=== PATIENT | male | born 1960 | race Caucasian/White ===

== ENCOUNTER 2019-09-27 20:24 | Emergency (ER) | payer BC ==
[~2019-09-27 20:24] MED LIST: Cephalexin 500 MG Cap ONE
[2019-09-27] MEDS ORDERED: Lidocaine 1% 10 ML MDV INJECT ONE (20:50)
--- NOTE | 2019-09-27 21:06 | EDM.PDOC ---
ED HPI GENERAL MEDICAL PROBLEM - General Chief Complaint: General Stated Complaint: FISH HOOK Time Seen by Provider: 09/27/19 20:51 Source of Information: Reports: Patient History Limitations: Reports: No Limitations - History of Present Illness INITIAL COMMENTS - FREE TEXT/NARRATIVE: Pt was fishing prior to arrival and got a fishhook embedded in his right index finger while attempting to remove fishhook from fish's mouth. No other reason for visit. Onset: Today Onset Time: 20:00 Location: Reports: Upper Extremity, Right Quality: Reports: Sharp Severity: Mild Improves with: Reports: None Worsens with: Reports: None Associated Symptoms: Reports: No Other Symptoms Right Finger-Index Pain Score (Numeric/FACES): 4 - Related Data Allergies Allergy/AdvReac Type Severity Reaction Status Date / Time No Known Allergies Allergy Verified 09/27/19 21:10 Home Meds: Home Meds NK [No Known Home Meds] 09/28/19 [History] Past Medical History Respiratory History: Reports: Asthma Social & Family History - Family History Family Medical History: Noncontributory - Tobacco Use Smoking Status *Q: Never Smoker Second Hand Smoke Exposure: No - Caffeine Use Caffeine Use: Reports: Coffee - Recreational Drug Use Recreational Drug Use: No ED ROS GENERAL - Review of Systems Review Of Systems: See Below Constitutional: Reports: No Symptoms HEENT: Reports: No Symptoms Respiratory: Reports: No Symptoms Cardiovascular: Reports: No Symptoms GI/Abdominal: Reports: No Symptoms : Reports: No Symptoms Musculoskeletal: Reports: Other (right index finger pain from fishhook) Skin: Reports: Wound, Other (fishhook right index finger middle phalanx) ED EXAM, SKIN/RASH Exam: See Below Text/Narrative:: Mize in right index finger Exam Limited By: No Limitations General Appearance: Alert, WD/WN, No Apparent Distress Neck: Normal Inspection Respiratory/Chest: No Respiratory Distress Cardiovascular: Normal Peripheral Pulses Extremities: Other (right index finger with fish hook embedded) Psychiatric: Normal Affect, Normal Mood Skin: Warm, Other (fish hook embedded in right middle finger radial aspect middle phalanx) Location, Skin: Upper Extremity, Right (right middle finger fishhook embedded) ED SKIN PROCEDURES - Foreign Body Removal Indication:: fishhook embedded right index finger Consent Obtained:: Patient Performing Doctor:: Ernesto Medrano Anesthesia Type: Local Complications:: No Course - Vital Signs Last Recorded V/S: Last Vital Signs Temp 98 F 09/27/19 20:30 Pulse 78 09/27/19 20:30 Resp 18 09/27/19 20:30 BP 157/98 H 09/27/19 20:30 Pulse Ox 98 09/27/19 20:30 - Orders/Labs/Meds Orders: Active Orders 24 hr Category Date Time Status Vaccines to be Administered [RC] PER UNIT ROUTINE Care 09/27/19 21:19 Active Meds: Medications Discontinued Medications Generic Name Dose Route Start Last Admin Trade Name Shelia PRN Reason Stop Dose Admin Cephalexin 500 mg 09/28/19 00:00 09/28/19 01:41 Keflex PO Not Given Q6HR CY Diphtheria/Tetanus/Acell Pertussis 0.5 ml 09/27/19 21:19 09/27/19 21:18 Boostrix IM 09/27/19 21:20 0.5 ml .ONCE ONE Administration Lidocaine HCl 4 ml 09/27/19 20:50 09/27/19 20:50 Xylocaine-Mpf 1% INJECT 09/27/19 20:51 4 ml ONETIME ONE Administration Departure - Departure Time of Disposition: 21:14 Disposition: Home, Self-Care 01 Clinical Impression: Fish hook injury of finger Qualifiers: Encounter type: initial encounter Laterality: right Qualified Code(s): S69.91XA - Unspecified injury of right wrist, hand and finger(s), initial encounter - Discharge Information *PRESCRIPTION DRUG MONITORING PROGRAM REVIEWED*: Not Applicable *COPY OF PRESCRIPTION DRUG MONITORING REPORT IN PATIENT HANNAH: Not Applicable Instructions: Wound Care, Adult Referrals: PCP,None [Primary Care Provider] - Forms: ED Department Discharge Additional Instructions: *Take Cephalaxin twice a day for at least 7 days *Take Ibuprofen or Tylenol as needed for pain *Watch for signs of infection to the finger such as redness, warmth, or discharge If you have any questions or concerns please call us at [phone] Sepsis Event Note (ED) - Focused Exam Vital Signs: Vital Signs Temp Pulse Resp BP Pulse Ox 09/27/19 20:30 98 F 78 18 157/98 H 98 - My Orders Last 24 Hours: My Active Orders 09/27/19 21:19 Vaccines to be Administered [RC] PER UNIT ROUTINE - Assessment/Plan Last 24 Hours: My Active Orders 09/27/19 21:19 Vaccines to be Administered [RC] PER UNIT ROUTINE
[2019-09-27] MEDS ORDERED: Diphtheria,Pertussis(Acell),Tetanus Vaccine 0.5 ML SDV IM ONE (21:19)
[2019-09-28] MEDS ORDERED: Cephalexin 500 MG Cap PO SCH
== END 2019-09-27 21:25 | disposition home or self-care (01) ==
LOC: EDBD 20:24 → LB.ED 20:24
DX: S60.450A Superficial foreign body of right index finger, initial encounter (principal); J45.909 Unspecified asthma, uncomplicated; Z23 Encounter for immunization; W45.8XXA Other foreign body or object entering through skin, initial encounter
CPT/HCPCS: 90471; 90715; 96374; 99283; A9270; J2001